=== PATIENT | male | born 1970 | race Caucasian/White ===

== ENCOUNTER 2024-06-12 05:34 | Day surgery (SDC) | payer OTHER ==
[2024-06-07 08:49] VITALS: BMI 20.7
[2024-06-12] MEDS: IV FLUID CONTINUATION 1,000 ML IV ONE (06:48)
[2024-06-12] MEDS: ACETAMINOPHEN TAB 500 MG TAB PO PRN (07:08)
[2024-06-12] MEDS: LACTATED RINGERS 1,000 ML BAG IV STA (07:08)
[2024-06-12] MEDS: DEXAMETHASONE SOD PHOSPHATE 4 MG/ML 1 ML VIAL IVP STA (07:09)
[2024-06-12] MEDS: HEPARIN SODIUM,PORCINE 5,000 UNIT/ML 1 ML VIAL SQ PRN (07:09)
[2024-06-12] MEDS: ONDANSETRON 4 MG/2 ML VIAL IVP STA (07:10)
[2024-06-12 07:11] LABS: Basophils # (A) 0.1 k/uL (0-0.2); Basophils % (A) 1 %; Eosinophils # (A) 0.2 k/uL (0-0.7); Eosinophils % (A) 1 %; HCT 48.2 % (39.0-53.0); HGB 15.9 gm/dL (13.0-17.5); Lymphocytes % (A) 14 %; MCH 31.5 pg (25.0-35.0); MCHC 33.1 g/dL (31.0-37.0); MCV 95.4 fL (80.0-100.0); Mean Platelet Volume 7.3; Monocytes # (A) 0.7 k/uL (0-1.0); Monocytes % (A) 5 %; Neutrophils # (A) 11.3 k/uL (1.3-7.7); Neutrophils % (A) 78 %; Platelet Count 320 k/uL (150-450); RBC 5.06 m/uL (4.30-5.90); RDW 12.3 % (11.5-15.5); WBC 14.5 k/uL (3.8-10.6)
[2024-06-12] MEDS ORDERED: PROPOFOL 10 MG/ML 20 ML VIAL IV ONE (07:30)
[2024-06-12] MEDS ORDERED: MIDAZOLAM 2 MG/2 ML VIAL ONE (07:30)
[2024-06-12] MEDS ORDERED: HYDROmorphone (PF) 1 MG/ML ONE (07:30)
[2024-06-12] MEDS ORDERED: ROCURONIUM 10 MG/ML (5 ML VIAL) IV ONE (07:30)
[2024-06-12] MEDS ORDERED: NEOSTIGMINE 1 MG/ML 10 ML VIAL ONE (07:30)
[2024-06-12] MEDS ORDERED: GLYCOPYRROLATE 0.2 MG/ML 2 ML VIAL ONE (07:30)
[2024-06-12] MEDS ORDERED: fentaNYL (PF) 50 MCG/ML 2 ML AMP ONE (07:30)
[2024-06-12] MEDS ORDERED: LIDOCAINE 1% INJ 10MG/ML (20 ML MDV) ONE (07:30)
[2024-06-12] MEDS: TAMSULOSIN 0.4 MG CAP.ER.24H PO STA (07:32)
--- NOTE | 2024-06-12 07:35 | P.GSHP ---
History of Present Illness H&P Date: 06/12/24 Chief Complaint: Right inguinal hernia 54-year-old male here today for laparoscopic right inguinal hernia repair. Patient with bulge right groin enlarging in size over the last several years. Mild soreness at times especially with heavy lifting. Patient also feels a slight bulge to the right of the umbilicus. There is a gallbladder trocar scar in that vicinity. No palpable hernia on prior exam. Past Medical History Past Medical History: Hyperlipidemia Additional Past Medical History / Comment(s): Hyperlipidemia resolved now. History of Any Multi-Drug Resistant Organisms: None Reported Past Surgical History: Cholecystectomy, Ear Surgery Past Anesthesia/Blood Transfusion Reactions: No Reported Reaction, Motion Sickness Additional Past Anesthesia/Blood Transfusion Reaction / Comment(s): Hx motion sickness as child. Smoking Status: Never smoker - Past Family History Father Family Medical History: Cancer Additional Family Medical History / Comment(s): Blood cancer. Medications and Allergies Home Medications Medication Instructions Recorded Confirmed Type Athletic Greens 1 dose PO DAILY 06/07/24 06/12/24 History Allergies Allergy/AdvReac Type Severity Reaction Status Date / Time No Known Allergies Allergy Verified 06/12/24 06:32 Surgical - Exam Vital Signs Temp Pulse Resp BP Pulse Ox 97.4 F L 79 18 141/84 98 06/12/24 06:30 06/12/24 06:30 06/12/24 06:30 06/12/24 06:30 06/12/24 06:30 Physical exam: General: Well-developed, well-nourished HEENT: Normocephalic, sclerae nonicteric Abdomen: Nontender, nondistended, right inguinal hernia, mild fatty protrusion right periumbilical Extremities: No edema Neuro: Alert and oriented Results - Labs 06/12/24 06:43 Abnormal Lab Results - Last 24 Hours (Table) 06/12/24 Range/Units 06:43 WBC 14.5 H (3.8-10.6) k/uL Neutrophils # 11.3 H (1.3-7.7) k/uL Assessment and Plan (1) Right inguinal hernia Narrative/Plan: 54-year-old male with right inguinal hernia. Will proceed with laparoscopic da Aggie assisted repair right inguinal hernia with mesh, possible open, possible bilateral. Discussed with patient that we would evaluate the gallbladder trocar site and if her hernia was identified there would likely proceed with repair with possible mesh there as well. Risks of bleeding, infection, recurrence, bladder and bowel injury, numbness, nerve injury, conversion to an open procedure were discussed with the patient. The patient understands and wishes to proceed. Current Visit: Yes Status: Acute Code(s): K40.90 - UNIL INGUINAL HERNIA, W/O OBST OR GANGR, NOT SPCF RECUR SNOMED Code(s): 967671530
[2024-06-12] MEDS: BUPIVACAINE (PF) 0.25% 30 ML VIAL SQ ONE ×2 (07:58)
--- NOTE | 2024-06-12 08:57 | P.OP ---
Date of Procedure: 06/12/24 Procedure(s) Performed: PREOPERATIVE DIAGNOSIS: Right inguinal hernia POSTOPERATIVE DIAGNOSIS: Right direct inguinal hernia PROCEDURE: Laparoscopic da Aggie assisted repair right direct inguinal hernia with mesh SURGEON: Dr. Wilcox ANESTHESIA: General OPERATIVE PROCEDURE DETAILS: Patient was placed in the operating table in the supine position. The patient was placed under general anesthesia. The abdomen was prepped and draped in usual sterile fashion. A small curvilinear supraumbilical incision was made. The fascia was retracted anteriorly with Craig forceps. The Veress needle was inserted. The saline drop test was normal. Insufflation took place to 15 mmHg. An 8 mm trocar was placed into the peritoneal cavity. 2 additional 8 mm trochars were placed in the right upper quadrant and left upper quadrant under visualization. The robotic arms were then brought in and docked into place. The fenestrated bipolar was used in the left arm and the laparoscopic jami was utilized in the right arm. A 30 8 mm scope was used in the up position. The peritoneal cavity was inspected. First I inspected the area to the right side of the umbilicus. There appeared to be a horizontal scar from the previous trocar site. There was no visible hernia seen there. The groin bilaterally was inspected. The patient had an obvious direct hernia on the right-hand side. This was moderate sized. There was no visible hernia on the left. The peritoneum was incised in a horizontal fashion cephalad to the internal inguinal ring. Following that careful dissection of the preperitoneal space took place. This took place using both electrocautery, sharp dissection but primarily blunt dissection. Visualization of the pubic tubercle and Marino's ligament took place medially. Full dissection took place laterally as well. The hernia sac was fully dissected. There was no visible cord lipoma penetrating through the internal inguinal ring. Once we had adequate space the [id number] Progrip mesh was advanced into the preperitoneal space and flattened out appropriately to cover all potential herni a sites. This was sutured to the Marino's ligament using a running absorbable 3 oh V-Loc suture. The peritoneal defect was then closed using a absorbable 2-0 VLok suture. The hernia sac was incorporated into the peritoneal closure to help prevent future recurrence. The pneumoperitoneum was then evacuated. The skin of all 3 sites was closed using a 4-0 Monocryl stitch. Skin glue was then applied. TYPE OF MESH USED: ProGrip 15 x 10 cm LOCATION OF MESH: Preperitoneal FIXATION: Absorbable 3 oh V-Loc PREOPERATIVE DISCUSSION ON SMOKING CESSASTION: Yes PREOPERATIVE DISCUSSION ON MORBID OBESITY: Yes PREOPERATIVE DISCUSSION ON APPROPRIATE USE OF NARCOTIC USE: Yes PREOPERATIVE EDUCATION: Multi Modal, Smoking Cessation and Weight Loss with BMI over 35. DISPOSITION: Stable to recovery room
[2024-06-12 09:04] VITALS: TEMP 97
[2024-06-12] MEDS: LACTATED RINGERS 1,000 ML IV ONE (09:32)
[2024-06-12 09:42] VITALS: RESP 18
[2024-06-12 09:55] VITALS: BP 128/77; PULSE 93
[2024-06-12] MEDS ORDERED: IBUPROFEN 600 MG TAB PO SCH (12:00)
[2024-06-12] MEDS ORDERED: ACETAMINOPHEN TAB 325 MG TAB PO SCH (15:00)
== END 2024-06-12 10:39 | disposition home or self-care (01) ==
LOC: OR 05:34
PROVIDERS: ATTEND Surgery
DX: K40.90 Unilateral inguinal hernia, without obstruction or gangrene, not specified as recurrent (principal); I10 Essential (primary) hypertension; E78.5 Hyperlipidemia, unspecified; Z90.49 Acquired absence of other specified parts of digestive tract; Z79.899 Other long term (current) drug therapy
CPT/HCPCS: 49650; S2900; 85025

== ENCOUNTER → 2024-10-30 | Outpatient (CLI) | payer OTHER ==
--- NOTE | 2024-10-30 11:12 | US ---
EXAMINATION TYPE: US thyroid st tissue head/neck DATE OF EXAM: 10/30/2024 COMPARISON: NONE CLINICAL INDICATION: Male, 54 years old with history of R22.1 LOCALIZED SWELLING, MASS AND LUMP, NECK ; Patient states for the past few years he has felt a lump on his neck by his marcin's apple Technique: Grayscale imaging the area of midline neck. The area of palpable abnormality. Findings: Scanned midline neck: 0.8 x 0.4 x 0.8cm hypoechoic solid thyroid isthmus nodule seen at patient's pal pable TIRADS Score: 4 TIRADS Category 4: Moderately Suspicious Composition: Solid or almost completely solid (2 points). Echogenicity: Hypoechoic (2 points). Shape: Wider than tall (0 points). Margin: Smooth (0 points). Echogenic foci: None or large comet-tail artifacts (0 points) Recommendation: If >1.5cm: FNA; If >1cm: Follow up at 1,2, 3,5 years IMPRESSION: Findings correlate with hypoechoic TI-RADS 4 subcentimeter thyroid nodule that meet crite rigo for follow-up. Consider dedicated thyroid ultrasound in one year. Highest TI-RADS level nodule reported: 2017 ACR TI-RADS LEVEL: TI-RADS 4 - Moderately Suspicious: Follow if > 1 cm, FNA if > 1.5 cm TI-RADS assessment score and recommendation for follow-up based on appropriate scoring and treatment protocols. TR3: If nodule size is ? 2.5 cm, FNA is recommended. If nodule size is ? 1.5 cm, follow-up imaging at 1, 3, and 5 years is recommended. TR4: If nodule size is ? 1.5 cm, FNA is recommended. If nodule size is ? 1.0 cm, follow-up imaging at 1, 2, 3, and 5 years is recommended. TR5: If nodule size is ? 1.0 cm, FNA is recommended. If nodule size is ? 0.5 cm, annual follow-up for up to 5 years is recommended. [facility], , 10/30/2024 11:10 AM
== END | disposition home or self-care (01) ==
LOC: RADUSWWP 10:41
PROVIDERS: ATTEND Otolaryngology
DX: E04.1 Nontoxic single thyroid nodule (principal)
CPT/HCPCS: 76536